=== PATIENT | male | born 1935 | race Caucasian/White ===

== ENCOUNTER 2019-06-14 15:56 | Emergency (ER) | payer MEDICARE ==
[2019-06-14] MEDS ORDERED: NS 0.9% 1000 ML** 1,000 ML IV ONE (16:01)
--- NOTE | 2019-06-14 16:02 | ED ---
GI/ HPI - HPI Summary HPI Summary: Pt is an 83 y/o M presenting to the ED with a chief complaint of constipation. He states he has not had a bowel movement in the past week. He notes abd cramping, and decreased appetite. He denies back pain or hx of SBO. - History of Current Complaint Time Seen by Provider: 06/14/19 15:59 Stated Complaint: CONSTIPATION/ABD PAIN FOR 7DAYS PER EMS Hx Obtained From: Patient Onset/Duration: Started Days Ago, Still Present Timing: Constant, Lasting Days Severity: Moderate Current Severity: Moderate Location of Pain: Diffuse Associated Signs and Symptoms: Positive: Constipation, Change in Appetite, Abdominal Pain Aggravating Factor(s): Nothing Alleviating Factor(s): Nothing - Allergy/Home Medications Allergies/Adverse Reactions: Allergies Allergy/AdvReac Type Severity Reaction Status Date / Time No Known Allergies Allergy Verified 06/14/19 16:32 Home Medications: Home Medications Acetaminophen TAB* [Tylenol TAB*] 650 mg PO Q4H PRN 06/14/19 [History Confirmed 06/14/19] Mirtazapine TAB* [Remeron TAB*] 15 mg PO BEDTIME 06/14/19 [History Confirmed 04/23] Polyethylene Glycol 3350 [Miralax] 17 gm PO SEE INSTRUCTIONS 06/14/19 [History Confirmed 06/14/19] amLODIPine TAB* [Norvasc 5 mg TAB*] 10 mg PO DAILY 06/14/19 [History Confirmed 06/14/19] PMH/Surg Hx/FS Hx/Imm Hx Previously Healthy: Yes Endocrine/Hematology History: Denies: Hx Diabetes Cardiovascular History: Reports: Hx Hypertension Denies: Hx Myocardial Infarction Respiratory History: Reports: Hx Pneumonia GI History: Denies: Hx Obstructive Bowel - Family History Known Family History: Negative: Renal Disease - Social History Alcohol Use: None Hx Substance Use: No Substance Use Type: Reports: None Hx Tobacco Use: No Smoking Status (MU): Never Smoked Tobacco Review of Systems Positive: Other - decreased appetite Positive: Abdominal Pain, Other - constipation Negative: Myalgia - back pain All Other Systems Reviewed And Are Negative: Yes Physical Exam - Summary Physical Exam Summary: Constitutional: Well-developed, Well-nourished, Alert. (-) Distressed Skin: Warm, Dry HENT: Normocephalic; Atraumatic Eyes: Conjunctiva normal Neck: Musculoskeletal ROM normal neck. (-) JVD, (-) Stridor, (-) Tracheal deviation Cardio: Rhythm regular, rate normal, Heart sounds normal; Intact distal pulses; The pedal pulses are 2+ and symmetric. Radial pulses are 2+ and symmetric. (-) Murmur Pulmonary/Chest wall: Effort normal. (-) Respiratory distress, (-) Wheezes, (-) Rales Abd: Soft, (-) tenderness, (-) Distension, normal bowel sounds, (-) Guarding, (- ) Rebound Musculoskeletal: (-) Edema Lymph: (-) Cervical adenopathy Neuro: Alert, Oriented x3 Psych: Mood and affect Normal Triage Information Reviewed: Yes Vital Signs Reviewed: Yes Procedures - Sedation Patient Received Moderate/Deep Sedation with Procedure: No Diagnostics - Laboratory Result Diagrams: 06/14/19 16:07 06/14/19 16:07 Lab Statement: Any lab studies that have been ordered have been reviewed, and results considered in the medical decision making process. - Radiology Abd XR Radiology Interpretation Completed By: Radiologist Summary of Radiographic Findings: 1. Moderately large volume of formed stool present in the colon from the splenic flexure distal with severe rectal distention with stool. Negative for dilated bowel loops to indicate bowel obstruction. 2. No suspicious calcifications or mass effect. 3. Postsurgical change of multilevel lumbar sacral spine fusion. ED physician has reviewed this report. GIGU Course/Dx - Course Course Of Treatment: Pt is an 83 y/o M presenting to the ED with a chief complaint of constipation. He states he has not had a bowel movement in the past week. He notes abd cramping, and decreased appetite. He denies back pain. Physical exam nml. Nml active bowel sounds present. Abd XR shows: 1. Moderately large volume of formed stool present in the colon from the splenic flexure distal with severe rectal distention with stool. Negative for dilated bowel loops to indicate bowel obstruction. 2. No suspicious calcifications or mass effect. 3. Postsurgical change of multilevel lumbar sacral spine fusion. Pt had a bowel movement in the ED. Will be d/c'ed with dx of constipation. - Diagnoses Provider Diagnoses: Constipation Discharge ED - Sign-Out/Discharge Documenting (check all that apply): Patient Departure - Discharge Plan Condition: Stable Disposition: HOME Patient Education Materials: Constipation (ED) Referrals: Benny Hayes DO [Medical Doctor] - Additional Instructions: Please follow up with your primary care provider within the next 1-3 days. Return to the emergency department with any new or worsening symptoms. - Billing Disposition and Condition Condition: STABLE Disposition: Home - Attestation Statements Document Initiated by Chato: Yes Documenting Scribe: Ghazala Mcelroy Provider For Whom Chato is Documenting (Include Credential): Enmanuel Hernandez DO. Scribe Attestation: Ghazala Walters scribed for Enmanuel Hernandez DO. on 06/14/19 at 2015. Scribe Documentation Reviewed: Yes Provider Attestation: The documentation as recorded by the Ghazala moon accurately reflects the service I personally performed and the decisions made by Enmanuel rosas DO. Status of Scribe Document: Viewed
[2019-06-14] MEDS ORDERED: Magnesium CITRATE* 300 ML BTL PO ONE (16:04)
[2019-06-14 16:13] LABS: ABS Eosinophils 0.1 10^3/ul (0-0.6); ABS Lymphocytes 0.9 10^3/ul (1.0-4.8); ABS Monocytes 0.6 10^3/ul (0-0.8); Eosinophil % 1.4 %; Hematocrit 32 % (42-52); Hemoglobin 10.9 g/dL (14.0-18.0); Mean Corpuscular HGB Conc 34 g/dL (31-36); Mean Corpuscular Hemoglobin 32 pg (27-31); Mean Corpuscular Volume 92 fL (80-94); Mean Platelet Volume 8.3 fL (7.4-10.4); Platelet Count 402 10^3/uL (150-450); Red Blood Count 3.47 10^6 /uL (4.18-5.48); Red Cell Distribution Width 13 % (10-15); White Blood Count 6.7 10^3/uL (3.5-10.8)
[2019-06-14 16:29] LABS: Albumin 3.1 g/dL (3.2-5.2); Albumin/Globulin Ratio 0.8 (1-3); BUN/Creatinine Ratio 19.1 (8-20); Calcium 8.4 mg/dL (8.6-10.3); EGFR African American 77.4 (>60); EGFR Non-African American 63.9 (>60); Globulin 3.7 g/dL (2-4); Potassium 4.4 mmol/L (3.5-5.0); Total Bilirubin 0.3 mg/dL (0.2-1.0); Total Protein 6.8 g/dL (6.4-8.9)
[2019-06-14 18:07] VITALS: BP 143/62
== END 2019-06-14 18:06 | disposition home or self-care (01) ==
LOC: ED 15:56
DX: K59.00 Constipation, unspecified (principal); I10 Essential (primary) hypertension; Z79.899 Other long term (current) drug therapy
CPT/HCPCS: 36415; 74018; 80053; 85025; 96360; 99283; A9270-GY